=== PATIENT | male | born 1960 | race African-American/Black ===

== ENCOUNTER → 2020-02-04 07:35 | Outpatient (CLI) | payer BC, SELFPAY ==
--- NOTE | ~2020-02-04 | MR_ITS ---
EXAMINATION: MR shoulder RT wo con DATE: 02/04/2020 08:24 INDICATION: Right shoulder biceps tendinitis. Anterior right shoulder pain. TECHNIQUE: Magnetic resonance imaging (MRI) of the right shoulder was performed without intravenous c ontrast. Sequences included axial PD-weighted FS FSE, coronal oblique PD-weighted FS FSE and T2-weigh teodoro FS FSE, and sagittal oblique T2-weighted FS FSE and T1-weighted FSE. COMPARISON: Right shoulder radiographs 01/20/2020 FINDINGS: Coracoacromial arch: The acromion undersurface is curved in morphology with anterior hook (type III). There is widening of acromioclavicular joint. There is full-thickness cartilage loss of the acromion and distal clavicle with osteophytes. There is moderate subacromial/subdeltoid bursitis. Rotator cuff: There is severe supraspinatus and infraspinatus tendinopathy. There is a bursal-sided partial-thickne ss tear of supraspinatus and infraspinatus tendons measuring 12 mm anterior to posterior by 10 mm pro ximal to distal by 80% tendon thickness. Teres minor tendon is normal. There is mild subscapularis te ndinopathy. There is mild fatty atrophy of infraspinatus muscle belly. Biceps tendon and glenoid labrum: The biceps tendon is in bicipital groove. Intra-articular biceps tendon is normal. The glenoid labrum is normal. Fluid: There is no glenohumeral joint effusion. Bones/cartilage: There is deep partial thickness cartilage loss of glenoid central articular surface with subchondral cysts. The humeral head cartilage is normal. IMPRESSION: 1. Severe rotator cuff tendinopathy with bursal-sided, partial-thickness tear of supraspinatus and in fraspinatus tendons. 2. Moderate glenoid chondrosis. 3. Moderate subacromial/subdeltoid bursitis. 4. Widening of acromioclavicular joint with severe chondrosis. Reviewed, dictated and finalized at location A. IMPRESSION: 1. Severe rotator cuff tendinopathy with bursal-sided, partial-thickness tear o f supraspinatus and infraspinatus tendons. 2. Moderate glenoid chondrosis. 3. Moderate subacromial/subdeltoid bursitis. 4. Widening of acromioclavicular joint with severe chondrosis.
== END ==
PROVIDERS: PCP Internal Medicine; Visit Provider Orthopaedic Surgery
DX: M75.21 Bicipital tendinitis, right shoulder (principal); S46.011A Strain of muscle(s) and tendon(s) of the rotator cuff of right shoulder, initial encounter; M75.51 Bursitis of right shoulder
CPT/HCPCS: 73221

== ENCOUNTER → 2020-10-05 16:11 | Outpatient (CLI) | payer BC, SELFPAY ==
--- NOTE | ~2020-10-05 | XR_ITS ---
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 No fracture or dislocation, periosteal reaction or bone destruction, joint space narrowing, erosive c hange or chondrocalcinosis. IMPRESSION: No significant abnormality Reviewed, dictated and finalized at location A. IMPRESSION: No significant abnormality
== END ==
PROVIDERS: PCP Internal Medicine; Visit Provider Internal Medicine
DX: M79.646 Pain in unspecified finger(s) (principal)
CPT/HCPCS: 73120